=== PATIENT | male | born 1940 | race African-American/Black ===

== ENCOUNTER 2022-05-17 16:14 | Inpatient (IN) | payer OTHER ==
[~2022-05-17] VITALS: Ht 172.7 cm; Wt 85.0 kg
[2022-05-17] MEDS ORDERED: METO100T5 PO (16:39)
[2022-05-17] MEDS ORDERED: COSO1SOL3 OU (16:39)
[2022-05-17] MEDS ORDERED: BRIM2OPD OU (16:39)
[2022-05-17] MEDS ORDERED: LOSA100T45 PO (16:39)
[2022-05-17] MEDS ORDERED: XALA0.007 OU (16:39)
[2022-05-17] MEDS ORDERED: CLON0.2T PO (16:39)
[2022-05-17] MEDS ORDERED: METF500T13 PO (16:39)
[2022-05-17] MEDS ORDERED: hydrALAZINE 20MG/ML 1ML VIAL (J0360 PER 20MG) IV STA ×2 (18:04→19:26)
[2022-05-17 18:41] LABS: BASO # 0.1 10^3/uL (0.0-0.2); BASO % 0.7 % (0.0-1.0); EOS # 0.2 10^3/uL (0.0-0.5); EOS % 2.7 % (0.0-3.0); HEMATOCRIT 39.8 % (42.0-52.0); HEMOGLOBIN 12.7 g/dl (13.5-17.5); LYMPH # 1.9 10^3/uL (1.5-5.0); LYMPH % 24.2 % (24.0-44.0); MEAN CORPUSCULAR HEMOGLOBIN 31.7 pg (27.0-33.0); MEAN CORPUSCULAR HGB CONC 31.9 g/dl (32.0-36.5); MEAN CORPUSCULAR VOLUME 99.3 fl (80.0-96.0); MONO # 0.6 10^3/uL (0.0-0.8); MONO % 7.9 % (2.0-8.0); NEUTROPHILS # 4.9 10^3/uL (1.5-8.5); NEUTROPHILS % 64.2 % (36.0-66.0); PLATELET COUNT, AUTOMATED 151 10^3/uL (150-450); RED BLOOD COUNT 4.01 10^6/uL (4.30-6.10); WHITE BLOOD COUNT 7.7 10^3/uL (4.0-10.0)
[2022-05-17 18:57] LABS: ALBUMIN 3.8 GM/DL (3.2-5.2); BILIRUBIN,DIRECT 0.2 MG/DL (0.0-0.2); BILIRUBIN,TOTAL 1.4 MG/DL (0.2-1.0); CALCIUM LEVEL 9.1 MG/DL (8.8-10.2); CREATININE FOR GFR 1.61 MG/DL (0.70-1.30); FREE T4 0.77 NG/DL (0.76-1.46); GLOMERULAR FILTRATION RATE 44.2 (>35); POTASSIUM SERUM 4.8 MEQ/L (3.5-5.1); THYROID STIMULATING HORMONE 2.58 uIU/ML (0.358-3.740); TOTAL PROTEIN 7.7 GM/DL (6.4-8.2)
[2022-05-17 19:57] LABS: RSV AMPLIFICATION NEGATIVE (NEGATIVE)
[2022-05-17] MEDS ORDERED: RA M10TA PO (21:48)
[2022-05-17] MEDS ORDERED: VITMTA PO (21:48)
[2022-05-17] MEDS ORDERED: HOME MED LIST COMPLETE! XX SCH (21:50)
[2022-05-17] MEDS ORDERED: GLUCOSE 4GM CHEW TABLET PO PRN (22:35)
[2022-05-17] MEDS ORDERED: GLUCAGON INJ 1MG VIAL SC PRN (22:35)
[2022-05-17] MEDS ORDERED: DEXTROSE 50% 50 ML SYRINGE IV PRN (22:35)
[2022-05-17] MEDS ORDERED: MOM 30ML SUSPENSION UDC PO PRN (22:35)
[2022-05-17] MEDS: INSULIN LISPRO (NovoLOG) PER UNIT SC SCH (23:21)
[2022-05-18] VITALS (9 sets, daily range): BP systolic 141–220; BP diastolic 79–102
[2022-05-18] MEDS: hydrALAZINE 20MG/ML 1ML VIAL (J0360 PER 20MG) IV PRN ×2 (00:28→15:50)
[2022-05-18] MEDS: COSOPT OCUMETER PLUS 10ML (DORZOLAMIDE/TIMOLOL) OU SCH ×3 (01:05→20:37)
[2022-05-18] MEDS: BRIMONIDINE 0.15% OPHTH SOLN 5 ML OU SCH ×3 (01:05→20:37)
[2022-05-18] MEDS: LATANOPROST 0.005% OPHTH SOLN 2.5 ML OU SCH ×2 (01:28→20:37)
[2022-05-18] MEDS ORDERED: hydrALAZINE 20MG/ML 1ML VIAL (J0360 PER 20MG) IV STA (03:50)
[2022-05-18] MEDS: ACETAMINOPHEN TAB 650MG DOSE (2X325MG) PO PRN ×2 (03:57→08:26)
[2022-05-18] MEDS: HEPARIN SOD (PORCINE) 5000UNITS/ML 1ML VIAL/SYRINGE SC SCH ×3 (05:38→21:04)
[2022-05-18 06:16] LABS: HEMATOCRIT 39.9 % (42.0-52.0); HEMOGLOBIN 13.3 g/dl (13.5-17.5); MEAN CORPUSCULAR HEMOGLOBIN 32.4 pg (27.0-33.0); MEAN CORPUSCULAR HGB CONC 33.3 g/dl (32.0-36.5); MEAN CORPUSCULAR VOLUME 97.1 fl (80.0-96.0); PLATELET COUNT, AUTOMATED 159 10^3/uL (150-450); RED BLOOD COUNT 4.11 10^6/uL (4.30-6.10); WHITE BLOOD COUNT 9.5 10^3/uL (4.0-10.0)
[2022-05-18 06:46] LABS: ALBUMIN 3.9 GM/DL (3.2-5.2); ALT/SGPT 16 U/L (12-78); BILIRUBIN,TOTAL 1.6 MG/DL (0.2-1.0); BLOOD UREA NITROGEN 10 MG/DL (7-18); CALCIUM LEVEL 9.1 MG/DL (8.8-10.2); CARBON DIOXIDE LEVEL 24 MEQ/L (21-32); CHLORIDE LEVEL 103 MEQ/L (98-107); CREATININE FOR GFR 1.31 MG/DL (0.70-1.30); GLOMERULAR FILTRATION RATE > 60.0 (>35); GLUCOSE, FASTING 281 MG/DL (70-100); POTASSIUM SERUM 4.1 MEQ/L (3.5-5.1); SODIUM LEVEL 136 MEQ/L (136-145); TOTAL PROTEIN 7.7 GM/DL (6.4-8.2)
[2022-05-18] MEDS: INSULIN LISPRO (NovoLOG) PER UNIT SC SCH ×4 (07:30→21:04)
[2022-05-18] MEDS ORDERED: metFORMIN (GLUCOPHAGE) 500MG TAB PO SCH (08:00)
[2022-05-18] MEDS: DOCUSATE SODIUM 100MG CAPSULE PO SCH ×2 (08:26→20:32)
[2022-05-18] MEDS: METOPROLOL TARTRATE 100MG TAB PO SCH ×2 (08:27→20:33)
[2022-05-18] MEDS: LOSARTAN 50MG TABLET PO SCH (08:27)
[2022-05-18] MEDS: cloNIDine 0.2 MG TAB PO SCH ×2 (08:27→20:32)
[2022-05-18] MEDS: MULTIVITAMINS/MINERALS THERAP 1 TAB PO SCH (08:28)
[2022-05-18] MEDS ORDERED: amLODIPine 5 MG TAB PO SCH (09:00)
[2022-05-18] MEDS ORDERED: PREVNAR-20 VACCINE 0.5ML SYRINGE IM.IMMUN ONE (12:00)
[2022-05-18] MEDS ORDERED: amLODIPine 5 MG TAB PO ONE (16:55)
[2022-05-19] VITALS (8 sets, daily range): BP systolic 152–178; BP diastolic 68–98
[2022-05-19 05:08] LABS: HEMATOCRIT 39.5 % (42.0-52.0); HEMOGLOBIN 12.8 g/dl (13.5-17.5); MEAN CORPUSCULAR HEMOGLOBIN 31.7 pg (27.0-33.0); MEAN CORPUSCULAR HGB CONC 32.4 g/dl (32.0-36.5); MEAN CORPUSCULAR VOLUME 97.8 fl (80.0-96.0); PLATELET COUNT, AUTOMATED 166 10^3/uL (150-450); RED BLOOD COUNT 4.04 10^6/uL (4.30-6.10); WHITE BLOOD COUNT 8.6 10^3/uL (4.0-10.0)
[2022-05-19 05:48] LABS: ALBUMIN 3.7 GM/DL (3.2-5.2); BILIRUBIN,TOTAL 1.5 MG/DL (0.2-1.0); CALCIUM LEVEL 9.7 MG/DL (8.8-10.2); CREATININE FOR GFR 1.54 MG/DL (0.70-1.30); GLOMERULAR FILTRATION RATE 56.4 (>35); MAGNESIUM LEVEL 1.8 MG/DL (1.8-2.4); TOTAL PROTEIN 7.7 GM/DL (6.4-8.2)
[2022-05-19] MEDS: HEPARIN SOD (PORCINE) 5000UNITS/ML 1ML VIAL/SYRINGE SC SCH ×3 (05:58→22:00)
[2022-05-19] MEDS: INSULIN LISPRO (NovoLOG) PER UNIT SC SCH ×4 (07:30→21:00)
[2022-05-19 08:52] LABS: HEMOGLOBIN A1c 8.6 %
[2022-05-19] MEDS: cloNIDine 0.2 MG TAB PO SCH ×2 (09:33→22:01)
[2022-05-19] MEDS: LOSARTAN 50MG TABLET PO SCH (09:34)
[2022-05-19] MEDS: DOCUSATE SODIUM 100MG CAPSULE PO SCH ×2 (09:34→22:00)
[2022-05-19] MEDS: BRIMONIDINE 0.15% OPHTH SOLN 5 ML OU SCH ×2 (09:35→21:59)
[2022-05-19] MEDS: COSOPT OCUMETER PLUS 10ML (DORZOLAMIDE/TIMOLOL) OU SCH ×2 (09:35→22:00)
[2022-05-19] MEDS: MULTIVITAMINS/MINERALS THERAP 1 TAB PO SCH (09:35)
[2022-05-19] MEDS: METOPROLOL TARTRATE 100MG TAB PO SCH ×2 (09:36→22:02)
[2022-05-19 19:08] LABS: CREATININE FOR GFR 1.76 MG/DL (0.70-1.30); GLOMERULAR FILTRATION RATE 48.3 (>35); POTASSIUM SERUM 4.4 MEQ/L (3.5-5.1)
[2022-05-19 19:09] LABS: CALCIUM LEVEL 9.1 MG/DL (8.8-10.2)
[2022-05-19] MEDS: LATANOPROST 0.005% OPHTH SOLN 2.5 ML OU SCH (21:59)
[2022-05-20] VITALS (8 sets, daily range): BP systolic 118–174; BP diastolic 70–98
[2022-05-20] MEDS: hydrALAZINE 20MG/ML 1ML VIAL (J0360 PER 20MG) IV PRN (04:23)
[2022-05-20] MEDS: HEPARIN SOD (PORCINE) 5000UNITS/ML 1ML VIAL/SYRINGE SC SCH ×2 (05:19→13:21)
[2022-05-20 05:34] LABS: HEMATOCRIT 36.7 % (42.0-52.0); HEMOGLOBIN 12.2 g/dl (13.5-17.5); MEAN CORPUSCULAR HEMOGLOBIN 32.3 pg (27.0-33.0); MEAN CORPUSCULAR HGB CONC 33.2 g/dl (32.0-36.5); MEAN CORPUSCULAR VOLUME 97.1 fl (80.0-96.0); PLATELET COUNT, AUTOMATED 161 10^3/uL (150-450); RED BLOOD COUNT 3.78 10^6/uL (4.30-6.10); WHITE BLOOD COUNT 7.2 10^3/uL (4.0-10.0)
[2022-05-20 06:06] LABS: ALBUMIN 3.3 GM/DL (3.2-5.2); BILIRUBIN,TOTAL 1.4 MG/DL (0.2-1.0); CALCIUM LEVEL 9.2 MG/DL (8.8-10.2); CREATININE FOR GFR 1.73 MG/DL (0.70-1.30); GLOMERULAR FILTRATION RATE 49.3 (>35); MAGNESIUM LEVEL 1.9 MG/DL (1.8-2.4); POTASSIUM SERUM 3.9 MEQ/L (3.5-5.1)
[2022-05-20] MEDS ORDERED: **hydrALAZINE** 10 MG TAB PO SCH ×2 (09:00→16:00)
[2022-05-20] MEDS: INSULIN LISPRO (NovoLOG) PER UNIT SC SCH ×2 (09:06→12:35)
[2022-05-20] MEDS: MULTIVITAMINS/MINERALS THERAP 1 TAB PO SCH (09:07)
[2022-05-20] MEDS: cloNIDine 0.2 MG TAB PO SCH (09:07)
[2022-05-20] MEDS: DOCUSATE SODIUM 100MG CAPSULE PO SCH (09:07)
[2022-05-20] MEDS: METOPROLOL TARTRATE 100MG TAB PO SCH (09:08)
[2022-05-20] MEDS: BRIMONIDINE 0.15% OPHTH SOLN 5 ML OU SCH (09:09)
[2022-05-20] MEDS: COSOPT OCUMETER PLUS 10ML (DORZOLAMIDE/TIMOLOL) OU SCH (09:09)
[2022-05-20] MEDS ORDERED: HYDR10TAB PO (13:57)
[2022-05-20] MEDS ORDERED: AMLO1TAB25 PO (13:57)
== END 2022-05-20 19:03 | disposition home or self-care (01) | DRG 305 ==
LOC: M ED 16:14 → M ED INP 22:34 → ENRESERV 23:23 → M PCU 05-18 00:11
PROVIDERS: ADMIT Family Medicine; ATTEND Family Medicine
DX: I16.9 Hypertensive crisis, unspecified (principal); N17.9 Acute kidney failure, unspecified; I70.1 Atherosclerosis of renal artery; Z79.899 Other long term (current) drug therapy; E11.9 Type 2 diabetes mellitus without complications; I10 Essential (primary) hypertension

== ENCOUNTER → 2022-06-28 | Outpatient (REF) | payer OTHER ==
[~2022-06-28] MED LIST: AMLO1TAB25 PO; BRIM2OPD OU; CLON0.2T PO; COSO1SOL3 OU; HYDR10TAB PO; LOSA100T45 PO; METF500T13 PO; METO100T5 PO; RA M10TA PO; VITMTA PO; XALA0.007 OU
[2022-06-28 14:18] LABS: BASO % 0.5 % (0.0-1.0); EOS # 0.3 10^3/uL (0.0-0.5); EOS % 3.8 % (0.0-3.0); HEMATOCRIT 37.5 % (42.0-52.0); HEMOGLOBIN 11.8 g/dl (13.5-17.5); LYMPH # 2.1 10^3/uL (1.5-5.0); LYMPH % 28.7 % (24.0-44.0); MEAN CORPUSCULAR HEMOGLOBIN 31.7 pg (27.0-33.0); MEAN CORPUSCULAR HGB CONC 31.5 g/dl (32.0-36.5); MEAN CORPUSCULAR VOLUME 100.8 fl (80.0-96.0); MONO # 0.6 10^3/uL (0.0-0.8); NEUTROPHILS # 4.3 10^3/uL (1.5-8.5); NEUTROPHILS % 58.7 % (36.0-66.0); PLATELET COUNT, AUTOMATED 152 10^3/uL (150-450); RED BLOOD COUNT 3.72 10^6/uL (4.30-6.10); WHITE BLOOD COUNT 7.3 10^3/uL (4.0-10.0)
[2022-06-28 14:51] LABS: HEMOGLOBIN A1c 10.3 %
[2022-06-28 15:47] LABS: ALBUMIN 3.4 GM/DL (3.2-5.2); BILIRUBIN,TOTAL 0.9 MG/DL (0.2-1.0); CALCIUM LEVEL 8.6 MG/DL (8.8-10.2); CHOLESTEROL RISK RATIO 3.853 (<5); CREATININE FOR GFR 1.53 MG/DL (0.70-1.30); GLOMERULAR FILTRATION RATE 56.8 (>35); POTASSIUM SERUM 4.9 MEQ/L (3.5-5.1); TOTAL PROTEIN 7.7 GM/DL (6.4-8.2)
== END ==
LOC: M LAB REF 12:33
PROVIDERS: ATTEND Nurse Practitioner Family
DX: I10 Essential (primary) hypertension (principal); R60.0 Localized edema; E11.9 Type 2 diabetes mellitus without complications

== ENCOUNTER → 2022-08-01 | Outpatient (REF) | payer OTHER ==
[2022-08-01 18:17] LABS: BASO # 0.1 10^3/uL (0.0-0.2); BASO % 0.7 % (0.0-1.0); EOS # 0.2 10^3/uL (0.0-0.5); EOS % 2.6 % (0.0-3.0); HEMATOCRIT 38.4 % (42.0-52.0); HEMOGLOBIN 12.3 g/dl (13.5-17.5); LYMPH # 1.9 10^3/uL (1.5-5.0); MEAN CORPUSCULAR HEMOGLOBIN 31.7 pg (27.0-33.0); MONO # 0.5 10^3/uL (0.0-0.8); MONO % 7.3 % (2.0-8.0); NEUTROPHILS # 4.8 10^3/uL (1.5-8.5); NEUTROPHILS % 64.3 % (36.0-66.0); PLATELET COUNT, AUTOMATED 180 10^3/uL (150-450); RED BLOOD COUNT 3.88 10^6/uL (4.30-6.10); WHITE BLOOD COUNT 7.4 10^3/uL (4.0-10.0)
[2022-08-01 22:29] LABS: BLOOD UREA NITROGEN 14 MG/DL (9-23); CARBON DIOXIDE LEVEL 24 MMOL/L (20-31); CHLORIDE LEVEL 101 MMOL/L (98-107); CREATININE FOR GFR 1.33 MG/DL (0.70-1.30); FERRITIN 25.7 NG/ML (10.5-307.3); FOLATE > 24.0 NG/ML (>5.4); GLOMERULAR FILTRATION RATE > 60.0 (>35); GLUCOSE, FASTING 316 MG/DL (74-106); IRON (FE) 91 UG/DL (65-175); PERCENT SATURATION 26.8 % (19.7-50.0); PHOSPHORUS LEVEL 3.1 MG/DL (2.4-5.1); POTASSIUM SERUM 4.6 MMOL/L (3.5-5.1); SODIUM LEVEL 135 MMOL/L (136-145); TOTAL IRON BINDING CAPACITY 339 UG/DL (250-425)
[2022-08-01 22:36] LABS: PTH INTACT 58.8 PG/ML (18.5-88.0); VITAMIN B12 LEVEL 369 PG/ML (211-911)
== END ==
LOC: M LAB REF 17:35
PROVIDERS: ATTEND Nurse Practitioner Family
DX: R60.0 Localized edema (principal); R79.89 Other specified abnormal findings of blood chemistry; D64.9 Anemia, unspecified; E83.51 Hypocalcemia

== ENCOUNTER 2022-12-22 13:18 | Inpatient (IN) | payer OTHER ==
[2022-12-22] VITALS (18 sets, daily range): BP systolic 135–206; BP diastolic 74–119
[~2022-12-22] VITALS: Ht 172.7 cm; Wt 84.5 kg
[~2022-12-22 13:18] MED LIST changes: -COSO1SOL3 OU; +DORZ10DR10 OU; -LOSA100T45 PO; +LOSA100T46 PO
[2022-12-22] MEDS ORDERED: VALSARTAN 80 MG TAB (DIOVAN) PO ONE (14:50)
[2022-12-22] MEDS ORDERED: CHLORTHALIDONE 12.5MG PER 1/2 TABLET PO ONE (14:50)
[2022-12-22 14:53] LABS: INR 1.06; PARTIAL THROMBOPLASTIN TIME 21.5 SECONDS (24.8-34.2)
[2022-12-22 15:06] LABS: BASO % 0.6 % (0.0-1.0); EOS # 0.2 10^3/uL (0.0-0.5); EOS % 2.7 % (0.0-3.0); HEMOGLOBIN 13.1 g/dl (13.5-17.5); LYMPH # 1.9 10^3/uL (1.5-5.0); LYMPH % 30.3 % (24.0-44.0); MEAN CORPUSCULAR HGB CONC 32.8 g/dl (32.0-36.5); MEAN CORPUSCULAR VOLUME 97.6 fl (80.0-96.0); MONO # 0.5 10^3/uL (0.0-0.8); NEUTROPHILS # 3.7 10^3/uL (1.5-8.5); NEUTROPHILS % 58.1 % (36.0-66.0); PLATELET COUNT, AUTOMATED 154 10^3/uL (150-450); WHITE BLOOD COUNT 6.4 10^3/uL (4.0-10.0)
[2022-12-22 15:06] LABS: LIPASE 30 U/L (12-53)
[2022-12-22 15:09] LABS: ALBUMIN 3.6 G/DL (3.2-5.2); ALKALINE PHOSPHATASE 55 U/L (46-116); ALT/SGPT 14 U/L (7.0-40); AST/SGOT 20 U/L (<34); BILIRUBIN,DIRECT 0.4 MG/DL (<0.4); BILIRUBIN,TOTAL 1.5 MG/DL (0.3-1.2); BLOOD UREA NITROGEN 10 MG/DL (9-23); CALCIUM LEVEL 8.5 MG/DL (8.3-10.6); CARBON DIOXIDE LEVEL 28 MMOL/L (20-31); CHLORIDE LEVEL 100 MMOL/L (98-107); CK-MB VALUE MASS < 1.0 NG/ML (<3.6); CREATININE FOR GFR 1.37 MG/DL (0.70-1.30); GLOMERULAR FILTRATION RATE > 60.0 (>35); GLUCOSE, FASTING 336 MG/DL (74-106); POTASSIUM SERUM 4.5 MMOL/L (3.5-5.1); SODIUM LEVEL 134 MMOL/L (136-145); TOTAL PROTEIN 7.4 G/DL (5.7-8.2)
[2022-12-22 15:10] LABS: FREE T4 0.88 NG/DL (0.89-1.76)
[2022-12-22 15:11] LABS: THYROID STIMULATING HORMONE 2.218 uIU/ML (0.55-4.78)
[2022-12-22 15:13] LABS: CPK CREATINE PHOSPHOKINASE 156 U/L (46-171); MB/CK RELATIVE INDEX 0.64 (< OR =4)
[2022-12-22 15:15] LABS: RSV AMPLIFICATION NEGATIVE (NEGATIVE)
[2022-12-22] MEDS ORDERED: hydrALAZINE 20MG/ML 1ML VIAL IV ONE (15:40)
[2022-12-22 16:46] LABS: CK-MB VALUE MASS < 1.0 NG/ML (<3.6); CPK CREATINE PHOSPHOKINASE 146 U/L (46-171); MB/CK RELATIVE INDEX 0.68 (< OR =4)
[2022-12-22] MEDS ORDERED: niCARdipine 40MG IN 200ML NACL IV BAG As Ordered ONE (17:25)
[2022-12-22] MEDS ORDERED: niCARdipine IV 40 MG in IV 1 EA IV SCH (17:30)
[2022-12-22] MEDS ORDERED: NITROGLYCERIN/D5W 100MCG/ML 25 MG in IV 1 EA IV SCH ×2 (17:40→17:45)
[2022-12-22] MEDS ORDERED: DEXTROSE 50% 50ML SYRINGE IV PRN (18:10)
[2022-12-22] MEDS ORDERED: GLUCOSE 4GM CHEW TABLET PO PRN (18:10)
[2022-12-22] MEDS ORDERED: GLUCAGON INJ 1MG VIAL SC PRN (18:10)
[2022-12-22] MEDS ORDERED: HYDR10TAB PO (18:46)
[2022-12-22] MEDS ORDERED: NETA2.5D2 OU (18:46)
[2022-12-22] MEDS ORDERED: HOME MED LIST COMPLETE! XX SCH (18:50)
[2022-12-22 20:26] LABS: APPEARANCE, URINE CLEAR (CLEAR); BACTERIA, URINE AUTO NEGATIVE (NEGATIVE); BILIRUBIN, URINE AUTO NEGATIVE (NEGATIVE); BLOOD, URINE BLOOD NEGATIVE (NEGATIVE); COLOR, URINE YELLOW (YELLOW); GLUCOSE, URINE (UA) AUTO 3+ mg/dL (NEGATIVE); KETONE, URINE AUTO NEGATIVE (NEGATIVE); LEUKOCYTE ESTERASE, URINE AUTO NEGATIVE (NEGATIVE); NITRITE, URINE AUTO NEGATIVE (NEGATIVE); PROTEIN, URINE AUTO 2+ mg/dL (NEGATIVE); RBC, URINE AUTO 0 /HPF (0-3); SPECIFIC GRAVITY URINE AUTO 1.009 (1.002-1.035); SQUAMOUS EPITHELIAL CELL UR AU 0 /HPF (0-6); UROBILINOGEN, URINE AUTO 0.2 mg/dL (0.0-2.0); WBC, URINE AUTO 0 /HPF (0-3)
[2022-12-22] MEDS: INSULIN LISPRO (NovoLOG) PER UNIT SC SCH (20:38)
[2022-12-22] MEDS: COSOPT OCUMETER PLUS 10ML (DORZOLAMIDE/TIMOLOL) OU SCH (21:00)
[2022-12-22 22:31] LABS: MAGNESIUM LEVEL 1.4 MG/DL (1.8-2.4)
[2022-12-22] MEDS: MAG SULF 1GM/100ML (MAG RUN) 1 GM in IV 1 EA IV SCH (23:28)
[2022-12-22] MEDS: BRIMONIDINE 0.15% OPHTH SOLN 5 ML OU SCH (23:28)
[2022-12-22] MEDS: LATANOPROST 0.005% OPHTH SOLN 2.5 ML OU SCH (23:28)
[2022-12-22] MEDS: ACETAMINOPHEN TAB 650MG DOSE (2X325MG) PO PRN (23:42)
[2022-12-22] MEDS: NITROGLYCERIN/D5W 100MCG/ML 25 MG in IV 1 EA IV SCH (23:48)
[2022-12-23] VITALS (90 sets, daily range): BP systolic 139–220; BP diastolic 65–140
[2022-12-23] MEDS: MAG SULF 1GM/100ML (MAG RUN) 1 GM in IV 1 EA IV SCH (00:16)
[2022-12-23 04:06] LABS: HEMATOCRIT 35.8 % (42.0-52.0); HEMOGLOBIN 12.1 g/dl (13.5-17.5); MEAN CORPUSCULAR HEMOGLOBIN 32.4 pg (27.0-33.0); MEAN CORPUSCULAR HGB CONC 33.8 g/dl (32.0-36.5); MEAN CORPUSCULAR VOLUME 95.7 fl (80.0-96.0); PLATELET COUNT, AUTOMATED 161 10^3/uL (150-450); RED BLOOD COUNT 3.74 10^6/uL (4.30-6.10); WHITE BLOOD COUNT 8.1 10^3/uL (4.0-10.0)
[2022-12-23 04:32] LABS: ALBUMIN 3.2 G/DL (3.2-5.2); ALKALINE PHOSPHATASE 49 U/L (46-116); ALT/SGPT 11 U/L (7.0-40); AST/SGOT < 8 U/L (<34); BILIRUBIN,TOTAL 1.4 MG/DL (0.3-1.2); BLOOD UREA NITROGEN 8 MG/DL (9-23); CALCIUM LEVEL 8.4 MG/DL (8.3-10.6); CARBON DIOXIDE LEVEL 26 MMOL/L (20-31); CHLORIDE LEVEL 101 MMOL/L (98-107); GLOMERULAR FILTRATION RATE > 60.0 (>35); GLUCOSE, FASTING 334 MG/DL (74-106); MAGNESIUM LEVEL 1.8 MG/DL (1.8-2.4); POTASSIUM SERUM 4.1 MMOL/L (3.5-5.1); SODIUM LEVEL 135 MMOL/L (136-145); TOTAL PROTEIN 6.2 G/DL (5.7-8.2)
[2022-12-23] MEDS: NITROGLYCERIN/D5W 100MCG/ML 25 MG in IV 1 EA IV SCH ×4 (05:52→18:30)
[2022-12-23] MEDS: ACETAMINOPHEN TAB 650MG DOSE (2X325MG) PO PRN (07:26)
[2022-12-23] MEDS ORDERED: ONDANSETRON 4MG 2ML VIAL IV PRN (07:45)
[2022-12-23] MEDS ORDERED: ONDANSETRON 4MG 2ML VIAL IV ONE (07:45)
[2022-12-23] MEDS ORDERED: ONDANSETRON 4MG 2ML VIAL As Ordered ONE (07:47)
[2022-12-23] MEDS ORDERED: MORPHINE 2 MG/ML 1ML VIAL IV PRN (08:10)
[2022-12-23] MEDS: BRIMONIDINE 0.15% OPHTH SOLN 5 ML OU SCH ×2 (08:31→20:05)
[2022-12-23] MEDS: INSULIN LISPRO (NovoLOG) PER UNIT SC SCH ×4 (08:31→20:06)
[2022-12-23] MEDS: COSOPT OCUMETER PLUS 10ML (DORZOLAMIDE/TIMOLOL) OU SCH ×2 (09:00→20:03)
[2022-12-23] MEDS ORDERED: cloNIDine HCL 0.2 MG/24 HR PATCH TOP SCH (09:00)
[2022-12-23] MEDS ORDERED: CHLORTHALIDONE 25 MG TAB PO ONE (10:10)
[2022-12-23] MEDS ORDERED: METOPROLOL SUCC *XL* 25MG TAB (TopROL *XL*) PO ONE ×2 (10:10→20:00)
[2022-12-23] MEDS: **hydrALAZINE HCL** 25 MG TAB PO SCH ×2 (12:08→17:11)
[2022-12-23] MEDS ORDERED: PANTOPRAZOLE 40MG VIAL IV SCH (18:00)
[2022-12-23] MEDS ORDERED: **hydrALAZINE HCL** 25 MG TAB PO ONE (20:00)
[2022-12-23] MEDS: LATANOPROST 0.005% OPHTH SOLN 2.5 ML OU SCH (20:05)
[2022-12-24] VITALS (79 sets, daily range): BP systolic 155–231; BP diastolic 72–137
[2022-12-24] MEDS: **hydrALAZINE HCL** 25 MG TAB PO SCH ×2 (00:10→05:44)
[2022-12-24] MEDS: NITROGLYCERIN/D5W 100MCG/ML 25 MG in IV 1 EA IV SCH ×9 (02:03→23:32)
[2022-12-24 05:00] LABS: HEMATOCRIT 34.2 % (42.0-52.0); HEMOGLOBIN 11.5 g/dl (13.5-17.5); MEAN CORPUSCULAR HEMOGLOBIN 32.3 pg (27.0-33.0); MEAN CORPUSCULAR HGB CONC 33.6 g/dl (32.0-36.5); MEAN CORPUSCULAR VOLUME 96.1 fl (80.0-96.0); PLATELET COUNT, AUTOMATED 152 10^3/uL (150-450); RED BLOOD COUNT 3.56 10^6/uL (4.30-6.10); WHITE BLOOD COUNT 10.7 10^3/uL (4.0-10.0)
[2022-12-24 05:23] LABS: BLOOD UREA NITROGEN 8 MG/DL (9-23); CALCIUM LEVEL 8.3 MG/DL (8.3-10.6); CARBON DIOXIDE LEVEL 26 MMOL/L (20-31); CHLORIDE LEVEL 102 MMOL/L (98-107); CREATININE FOR GFR 1.21 MG/DL (0.70-1.30); GLOMERULAR FILTRATION RATE > 60.0 (>35); GLUCOSE, FASTING 321 MG/DL (74-106); POTASSIUM SERUM 3.9 MMOL/L (3.5-5.1); SODIUM LEVEL 136 MMOL/L (136-145)
[2022-12-24] MEDS ORDERED: hydrALAZINE 20MG/ML 1ML VIAL IV PRN (07:40)
[2022-12-24] MEDS: BRIMONIDINE 0.15% OPHTH SOLN 5 ML OU SCH ×2 (08:24→20:11)
[2022-12-24] MEDS: CHLORTHALIDONE 25 MG TAB PO SCH (08:25)
[2022-12-24] MEDS: INSULIN LISPRO (NovoLOG) PER UNIT SC SCH ×4 (08:25→20:09)
[2022-12-24] MEDS: ACETAMINOPHEN TAB 650MG DOSE (2X325MG) PO PRN (08:26)
[2022-12-24] MEDS ORDERED: METOPROLOL SUCC (TopROL XL) 50MG **XL** TAB PO SCH (09:00)
[2022-12-24] MEDS ORDERED: METOPROLOL SUCC (TopROL XL) 100MG *XL* TAB PO SCH (09:00)
[2022-12-24] MEDS ORDERED: METOPROLOL SUCC *XL* 25MG TAB (TopROL *XL*) PO SCH (09:00)
[2022-12-24] MEDS: hydrALAZINE 20MG/ML 1ML VIAL IV PRN ×2 (09:39→16:06)
[2022-12-24] MEDS ORDERED: **hydrALAZINE** 50 MG TAB PO SCH (12:00)
[2022-12-24] MEDS: COSOPT OCUMETER PLUS 10ML (DORZOLAMIDE/TIMOLOL) OU SCH ×2 (13:23→20:11)
[2022-12-24] MEDS ORDERED: ENALAPRILAT INJ 2.5MG/2ML VIAL IV ONE (18:15)
[2022-12-24] MEDS: PANTOPRAZOLE 40MG TAB (PROTONIX) PO SCH (18:53)
[2022-12-24] MEDS: METOPROLOL SUCC (TopROL XL) 100MG *XL* TAB PO SCH (20:10)
[2022-12-24] MEDS: LATANOPROST 0.005% OPHTH SOLN 2.5 ML OU SCH (20:10)
[2022-12-24] MEDS ORDERED: LEVEMIR (INSULIN DETEMIR) 1 UNITS/0.01ML SC SCH (21:00)
[2022-12-24] MEDS: **hydrALAZINE** 50 MG TAB PO SCH (23:32)
[2022-12-25] VITALS (45 sets, daily range): BP systolic 151–225; BP diastolic 82–125
[2022-12-25] MEDS: NITROGLYCERIN/D5W 100MCG/ML 25 MG in IV 1 EA IV SCH ×7 (01:39→17:01)
[2022-12-25] MEDS: hydrALAZINE 20MG/ML 1ML VIAL IV PRN (04:13)
[2022-12-25] MEDS: **hydrALAZINE** 50 MG TAB PO SCH ×3 (06:04→17:27)
[2022-12-25 08:18] LABS: HEMATOCRIT 35.4 % (42.0-52.0); HEMOGLOBIN 12.3 g/dl (13.5-17.5); MEAN CORPUSCULAR HEMOGLOBIN 32.7 pg (27.0-33.0); MEAN CORPUSCULAR HGB CONC 34.7 g/dl (32.0-36.5); MEAN CORPUSCULAR VOLUME 94.1 fl (80.0-96.0); PLATELET COUNT, AUTOMATED 180 10^3/uL (150-450); RED BLOOD COUNT 3.76 10^6/uL (4.30-6.10); WHITE BLOOD COUNT 12.7 10^3/uL (4.0-10.0)
[2022-12-25] MEDS: CHLORTHALIDONE 25 MG TAB PO SCH (08:26)
[2022-12-25] MEDS: BRIMONIDINE 0.15% OPHTH SOLN 5 ML OU SCH ×2 (08:31→21:18)
[2022-12-25] MEDS: METOPROLOL SUCC (TopROL XL) 100MG *XL* TAB PO SCH ×2 (08:31→20:23)
[2022-12-25] MEDS: COSOPT OCUMETER PLUS 10ML (DORZOLAMIDE/TIMOLOL) OU SCH ×2 (08:32→21:18)
[2022-12-25] MEDS: VALSARTAN 80 MG TAB (DIOVAN) PO SCH (08:40)
[2022-12-25 08:43] LABS: ALBUMIN 3.1 G/DL (3.2-5.2); BLOOD UREA NITROGEN 8 MG/DL (9-23); CALCIUM LEVEL 8.4 MG/DL (8.3-10.6); CARBON DIOXIDE LEVEL 26 MMOL/L (20-31); CHLORIDE LEVEL 93 MMOL/L (98-107); CREATININE FOR GFR 1.05 MG/DL (0.70-1.30); GLOMERULAR FILTRATION RATE > 60.0 (>35); GLUCOSE, FASTING 363 MG/DL (74-106); PHOSPHORUS LEVEL 2.5 MG/DL (2.4-5.1); POTASSIUM SERUM 3.6 MMOL/L (3.5-5.1); SODIUM LEVEL 127 MMOL/L (136-145)
[2022-12-25] MEDS ORDERED: ALPRAZolam 0.25 MG TAB PO SCH (09:00)
[2022-12-25] MEDS: INSULIN LISPRO (NovoLOG) PER UNIT SC SCH ×3 (09:30→18:27)
[2022-12-25 09:33] LABS: ALKALINE PHOSPHATASE 52 U/L (46-116); ALT/SGPT 10 U/L (7.0-40); AST/SGOT 26 U/L (<34); BILIRUBIN,TOTAL 5.7 MG/DL (0.3-1.2); TOTAL PROTEIN 6.8 G/DL (5.7-8.2)
[2022-12-25 09:47] LABS: BASO % 0.2 % (0.0-1.0); EOS % 0.2 % (0.0-3.0); LYMPH % 8.3 % (24.0-44.0); MONO % 10.1 % (2.0-8.0); NEUTROPHILS % 80.6 % (36.0-66.0)
[2022-12-25 09:48] LABS: MONO # 1.2 10^3/uL (0.0-0.8); NEUTROPHILS # 9.8 10^3/uL (1.5-8.5)
[2022-12-25] MEDS ORDERED: ENALAPRILAT INJ 2.5MG/2ML VIAL IV ONE ×2 (10:00→15:45)
[2022-12-25] MEDS ORDERED: SPIRONOLACTONE 25 MG TAB PO ONE (12:00)
[2022-12-25] MEDS: PANTOPRAZOLE 40MG TAB (PROTONIX) PO SCH (17:27)
[2022-12-25] MEDS: FINASTERIDE 5MG TAB PO SCH (20:22)
[2022-12-25] MEDS: TAMSULOSIN 0.4 MG CAP PO SCH (20:22)
[2022-12-25] MEDS ORDERED: LEVEMIR (INSULIN DETEMIR) 1 UNITS/0.01ML SC SCH (21:00)
[2022-12-25] MEDS: LATANOPROST 0.005% OPHTH SOLN 2.5 ML OU SCH (21:18)
[2022-12-26] VITALS (35 sets, daily range): BP systolic 97–213; BP diastolic 57–111
[2022-12-26] MEDS: **hydrALAZINE** 50 MG TAB PO SCH ×3 (00:02→06:55)
[2022-12-26] MEDS: INSULIN LISPRO (NovoLOG) PER UNIT SC SCH ×6 (00:03→20:38)
[2022-12-26] MEDS ORDERED: hydrALAZINE 20MG/ML 1ML VIAL IV ONE (00:15)
[2022-12-26 04:47] LABS: HEMOGLOBIN 12.8 g/dl (13.5-17.5); MEAN CORPUSCULAR HEMOGLOBIN 32.2 pg (27.0-33.0); MEAN CORPUSCULAR HGB CONC 34.6 g/dl (32.0-36.5); MEAN CORPUSCULAR VOLUME 93.2 fl (80.0-96.0); PLATELET COUNT, AUTOMATED 190 10^3/uL (150-450); RED BLOOD COUNT 3.97 10^6/uL (4.30-6.10); WHITE BLOOD COUNT 12.8 10^3/uL (4.0-10.0)
[2022-12-26 05:03] LABS: EOSINOPHILS 1 % (0-3); LYMPHOCYTES 18 % (16-44); MONOCYTES 16 % (0-5); NEUTROPHILS 65 % (28-66); PLATELET CLUMPS SMALL AMT; PLATELET ESTIMATE NORMAL (NORMAL)
[2022-12-26 05:05] LABS: HYPOCHROMASIA 1+
[2022-12-26 05:13] LABS: ALBUMIN 2.8 G/DL (3.2-5.2); ALKALINE PHOSPHATASE 54 U/L (46-116); ALT/SGPT 14 U/L (7.0-40); AST/SGOT 19 U/L (<34); BILIRUBIN,TOTAL 5.9 MG/DL (0.3-1.2); BLOOD UREA NITROGEN 13 MG/DL (9-23); CALCIUM LEVEL 8.2 MG/DL (8.3-10.6); CARBON DIOXIDE LEVEL 26 MMOL/L (20-31); CHLORIDE LEVEL 92 MMOL/L (98-107); CREATININE FOR GFR 1.28 MG/DL (0.70-1.30); GLOMERULAR FILTRATION RATE > 60.0 (>35); GLUCOSE, FASTING 238 MG/DL (74-106); POTASSIUM SERUM 3.3 MMOL/L (3.5-5.1); SODIUM LEVEL 128 MMOL/L (136-145); TOTAL PROTEIN 6.4 G/DL (5.7-8.2)
[2022-12-26] MEDS ORDERED: POTASSIUM CHLORIDE 10MEQ SR TABLET PO ONE (06:05)
[2022-12-26] MEDS: SPIRONOLACTONE 25 MG TAB PO SCH (08:04)
[2022-12-26] MEDS: VALSARTAN 80 MG TAB (DIOVAN) PO SCH (08:05)
[2022-12-26] MEDS: METOPROLOL SUCC (TopROL XL) 100MG *XL* TAB PO SCH ×2 (08:05→20:24)
[2022-12-26] MEDS: CHLORTHALIDONE 25 MG TAB PO SCH (08:05)
[2022-12-26] MEDS: LATANOPROST 0.005% OPHTH SOLN 2.5 ML OU SCH ×2 (08:06→20:24)
[2022-12-26] MEDS: COSOPT OCUMETER PLUS 10ML (DORZOLAMIDE/TIMOLOL) OU SCH ×3 (08:06→20:24)
[2022-12-26] MEDS: BRIMONIDINE 0.15% OPHTH SOLN 5 ML OU SCH ×2 (08:13→20:24)
[2022-12-26] MEDS ORDERED: ALPRAZolam 0.25 MG TAB PO PRN (09:10)
[2022-12-26] MEDS ORDERED: NS 500 ML IV ONE (11:25)
[2022-12-26] MEDS: LEVEMIR (INSULIN DETEMIR) 1 UNITS/0.01ML SC SCH ×2 (11:26→20:39)
[2022-12-26] MEDS ORDERED: KCL 10MEQ/100ML SWI (KRUN) 10 MEQ in IV 1 EA IV ONE (11:45)
[2022-12-26 13:04] LABS: HEPATITIS B SURFACE ANTIGEN NEGATIVE (NEGATIVE)
[2022-12-26] MEDS: HEPARIN SOD (PORCINE) 5000UNITS/ML 1ML VIAL/SYRINGE SQ SCH ×2 (13:16→20:24)
[2022-12-26 13:26] LABS: HEPATITIS B CORE ANTIBODY IGM NEGATIVE (NEGATIVE)
[2022-12-26 13:33] LABS: ABG HCO3 24.9 MEQ/L (22.0-26.0); ABG O2 SATURATION 96.7 % (95.0-99.0); ABG PARTIAL PRESSURE CO2 37.4 mmHg (35.0-45.0); ABG PARTIAL PRESSURE O2 83.8 mmHg (75.0-100.0); ABG STANDARD HCO3 25.4 MEQ/L (22.0-26.0); ABG TOTAL CO2 26.1 MEQ/L (23.0-31.0); ABG pH (ARTERIAL) 7.442 UNITS (7.350-7.450)
[2022-12-26] MEDS ORDERED: LACTULOSE 20GM/30ML SYRUP UDC PR ONE (13:45)
[2022-12-26] MEDS ORDERED: LACTULOSE 20GM/30ML SYRUP UDC PO ONE (15:25)
[2022-12-26] MEDS: PANTOPRAZOLE 40MG TAB (PROTONIX) PO SCH (18:09)
[2022-12-26] MEDS ORDERED: cloNIDine HCL 0.2 MG/24 HR PATCH TOP SCH (20:00)
[2022-12-26] MEDS: FINASTERIDE 5MG TAB PO SCH (20:25)
[2022-12-26] MEDS: TAMSULOSIN 0.4 MG CAP PO SCH (20:25)
[2022-12-26] MEDS: LACTULOSE 20GM/30ML SYRUP UDC PO SCH (20:38)
[2022-12-26] MEDS ORDERED: LEVEMIR (INSULIN DETEMIR) 1 UNITS/0.01ML SC SCH (21:00)
[2022-12-27] VITALS (12 sets, daily range): BP systolic 113–167; BP diastolic 58–92
[2022-12-27 05:55] LABS: BASO # 0.1 10^3/uL (0.0-0.2); BASO % 0.4 % (0.0-1.0); EOS # 0.1 10^3/uL (0.0-0.5); EOS % 1.2 % (0.0-3.0); HEMATOCRIT 38.9 % (42.0-52.0); HEMOGLOBIN 13.2 g/dl (13.5-17.5); LYMPH # 1.9 10^3/uL (1.5-5.0); LYMPH % 16.7 % (24.0-44.0); MEAN CORPUSCULAR HEMOGLOBIN 32.6 pg (27.0-33.0); MEAN CORPUSCULAR HGB CONC 33.9 g/dl (32.0-36.5); MONO % 15.5 % (2.0-8.0); NEUTROPHILS # 7.4 10^3/uL (1.5-8.5); NEUTROPHILS % 65.3 % (36.0-66.0); PLATELET COUNT, AUTOMATED 193 10^3/uL (150-450); RED BLOOD COUNT 4.05 10^6/uL (4.30-6.10); WHITE BLOOD COUNT 11.3 10^3/uL (4.0-10.0)
[2022-12-27 06:23] LABS: ALBUMIN 2.7 G/DL (3.2-5.2); ALKALINE PHOSPHATASE 54 U/L (46-116); ALT/SGPT 15 U/L (7.0-40); AST/SGOT < 8 U/L (<34); BILIRUBIN,TOTAL 5.1 MG/DL (0.3-1.2); BLOOD UREA NITROGEN 20 MG/DL (9-23); CALCIUM LEVEL 8.6 MG/DL (8.3-10.6); CARBON DIOXIDE LEVEL 26 MMOL/L (20-31); CHLORIDE LEVEL 99 MMOL/L (98-107); CREATININE FOR GFR 1.42 MG/DL (0.70-1.30); GLOMERULAR FILTRATION RATE > 60.0 (>35); GLUCOSE, FASTING 206 MG/DL (74-106); POTASSIUM SERUM 3.8 MMOL/L (3.5-5.1); SODIUM LEVEL 133 MMOL/L (136-145); TOTAL PROTEIN 6.3 G/DL (5.7-8.2)
[2022-12-27 06:34] LABS: MONO # 1.8 10^3/uL (0.0-0.8)
[2022-12-27] MEDS: INSULIN LISPRO (NovoLOG) PER UNIT SC SCH ×7 (08:40→20:05)
[2022-12-27] MEDS: SPIRONOLACTONE 25 MG TAB PO SCH (08:42)
[2022-12-27] MEDS: LEVEMIR (INSULIN DETEMIR) 1 UNITS/0.01ML SC SCH ×2 (08:42→20:27)
[2022-12-27] MEDS: VALSARTAN 80 MG TAB (DIOVAN) PO SCH (08:42)
[2022-12-27] MEDS: LACTULOSE 20GM/30ML SYRUP UDC PO SCH ×2 (08:42→20:27)
[2022-12-27] MEDS: METOPROLOL SUCC (TopROL XL) 100MG *XL* TAB PO SCH ×2 (08:43→20:28)
[2022-12-27] MEDS: COSOPT OCUMETER PLUS 10ML (DORZOLAMIDE/TIMOLOL) OU SCH ×2 (08:44→20:28)
[2022-12-27] MEDS: BRIMONIDINE 0.15% OPHTH SOLN 5 ML OU SCH ×2 (08:44→20:28)
[2022-12-27] MEDS: HEPARIN SOD (PORCINE) 5000UNITS/ML 1ML VIAL/SYRINGE SQ SCH ×2 (08:44→20:26)
[2022-12-27] MEDS ORDERED: LR 500 ML IV ONE ×2 (12:25→15:35)
[2022-12-27] MEDS: LR 1,000 ML IV SCH ×2 (12:36→19:44)
[2022-12-27 13:08] LABS: ANTINUCLEAR ANTIBODIES DIRECT Negative (Negative)
[2022-12-27] MEDS ORDERED: NS 500 ML IV ONE (15:30)
[2022-12-27 16:43] LABS: ABG BASE EXCESS 3.1 (-2.0-2.0); ABG HCO3 26.5 MEQ/L (22.0-26.0); ABG O2 SATURATION 96.9 % (95.0-99.0); ABG PARTIAL PRESSURE CO2 36.7 mmHg (35.0-45.0); ABG PARTIAL PRESSURE O2 86.5 mmHg (75.0-100.0); ABG STANDARD HCO3 27.2 MEQ/L (22.0-26.0); ABG TOTAL CO2 27.7 MEQ/L (23.0-31.0); ABG pH (ARTERIAL) 7.477 UNITS (7.350-7.450)
[2022-12-27] MEDS: PANTOPRAZOLE 40MG TAB (PROTONIX) PO SCH (20:27)
[2022-12-27] MEDS: TAMSULOSIN 0.4 MG CAP PO SCH (20:27)
[2022-12-27] MEDS: FINASTERIDE 5MG TAB PO SCH (20:27)
[2022-12-27] MEDS: LATANOPROST 0.005% OPHTH SOLN 2.5 ML OU SCH (20:28)
[2022-12-28] VITALS (11 sets, daily range): BP systolic 122–169; BP diastolic 65–86
[2022-12-28] MEDS: LR 1,000 ML IV SCH ×3 (02:05→14:00)
[2022-12-28 05:24] LABS: BASO # 0.1 10^3/uL (0.0-0.2); BASO % 0.5 % (0.0-1.0); EOS # 0.3 10^3/uL (0.0-0.5); EOS % 2.3 % (0.0-3.0); HEMATOCRIT 34.4 % (42.0-52.0); HEMOGLOBIN 11.6 g/dl (13.5-17.5); LYMPH # 1.2 10^3/uL (1.5-5.0); LYMPH % 11.1 % (24.0-44.0); MEAN CORPUSCULAR HEMOGLOBIN 32.8 pg (27.0-33.0); MEAN CORPUSCULAR HGB CONC 33.7 g/dl (32.0-36.5); MEAN CORPUSCULAR VOLUME 97.2 fl (80.0-96.0); MONO % 14.7 % (2.0-8.0); NEUTROPHILS # 7.8 10^3/uL (1.5-8.5); NEUTROPHILS % 70.8 % (36.0-66.0); PLATELET COUNT, AUTOMATED 190 10^3/uL (150-450); RED BLOOD COUNT 3.54 10^6/uL (4.30-6.10)
[2022-12-28 05:43] LABS: ALBUMIN 2.3 G/DL (3.2-5.2); ALKALINE PHOSPHATASE 55 U/L (46-116); ALT/SGPT 12 U/L (7.0-40); AST/SGOT 19 U/L (<34); BILIRUBIN,TOTAL 3.1 MG/DL (0.3-1.2); BLOOD UREA NITROGEN 19 MG/DL (9-23); CALCIUM LEVEL 8.1 MG/DL (8.3-10.6); CARBON DIOXIDE LEVEL 27 MMOL/L (20-31); CHLORIDE LEVEL 101 MMOL/L (98-107); CREATININE FOR GFR 1.32 MG/DL (0.70-1.30); GLOMERULAR FILTRATION RATE > 60.0 (>35); GLUCOSE, FASTING 218 MG/DL (74-106); POTASSIUM SERUM 3.8 MMOL/L (3.5-5.1); SODIUM LEVEL 134 MMOL/L (136-145); TOTAL PROTEIN 5.6 G/DL (5.7-8.2)
[2022-12-28 06:08] LABS: MONO # 1.6 10^3/uL (0.0-0.8)
[2022-12-28] MEDS ORDERED: ISOVUE-370 76% 100ML VIAL As Ordered ONE (07:30)
[2022-12-28] MEDS: INSULIN LISPRO (NovoLOG) PER UNIT SC SCH ×7 (07:48→21:00)
[2022-12-28] MEDS: HEPARIN SOD (PORCINE) 5000UNITS/ML 1ML VIAL/SYRINGE SQ SCH ×2 (09:43→21:55)
[2022-12-28] MEDS: LACTULOSE 20GM/30ML SYRUP UDC PO SCH ×2 (09:43→21:55)
[2022-12-28] MEDS: VALSARTAN 80 MG TAB (DIOVAN) PO SCH (09:44)
[2022-12-28] MEDS: SPIRONOLACTONE 25 MG TAB PO SCH (09:45)
[2022-12-28] MEDS: METOPROLOL SUCC (TopROL XL) 100MG *XL* TAB PO SCH ×2 (09:45→21:57)
[2022-12-28] MEDS: COSOPT OCUMETER PLUS 10ML (DORZOLAMIDE/TIMOLOL) OU SCH ×2 (09:45→21:57)
[2022-12-28] MEDS: BRIMONIDINE 0.15% OPHTH SOLN 5 ML OU SCH ×2 (09:45→21:57)
[2022-12-28] MEDS: LEVEMIR (INSULIN DETEMIR) 1 UNITS/0.01ML SC SCH ×2 (09:45→21:00)
[2022-12-28] MEDS: PANTOPRAZOLE 40MG TAB (PROTONIX) PO SCH (17:11)
[2022-12-28] MEDS ORDERED: INSULIN LISPRO (NovoLOG) PER UNIT SC ONE (18:30)
[2022-12-28] MEDS: FINASTERIDE 5MG TAB PO SCH (21:56)
[2022-12-28] MEDS: LATANOPROST 0.005% OPHTH SOLN 2.5 ML OU SCH (21:57)
[2022-12-28] MEDS: TAMSULOSIN 0.4 MG CAP PO SCH (21:57)
[2022-12-29] VITALS: BP 147/67
[2022-12-29 04:00] VITALS: BP 153/99
[2022-12-29 06:44] LABS: HEMATOCRIT 34.6 % (42.0-52.0); HEMOGLOBIN 11.5 g/dl (13.5-17.5); MEAN CORPUSCULAR HEMOGLOBIN 32.7 pg (27.0-33.0); MEAN CORPUSCULAR HGB CONC 33.2 g/dl (32.0-36.5); MEAN CORPUSCULAR VOLUME 98.3 fl (80.0-96.0); PLATELET COUNT, AUTOMATED 193 10^3/uL (150-450); RED BLOOD COUNT 3.52 10^6/uL (4.30-6.10); WHITE BLOOD COUNT 9.1 10^3/uL (4.0-10.0)
[2022-12-29 07:10] LABS: BLOOD UREA NITROGEN 16 MG/DL (9-23); CALCIUM LEVEL 8.9 MG/DL (8.3-10.6); CARBON DIOXIDE LEVEL 31 MMOL/L (20-31); CHLORIDE LEVEL 101 MMOL/L (98-107); CREATININE FOR GFR 1.32 MG/DL (0.70-1.30); GLOMERULAR FILTRATION RATE > 60.0 (>35); GLUCOSE, FASTING 247 MG/DL (74-106); SODIUM LEVEL 136 MMOL/L (136-145)
[2022-12-29 07:40] VITALS: BP 166/70
[2022-12-29] MEDS: INSULIN LISPRO (NovoLOG) PER UNIT SC SCH ×6 (08:15→21:00)
[2022-12-29] MEDS: LEVEMIR (INSULIN DETEMIR) 1 UNITS/0.01ML SC SCH ×2 (08:17→21:58)
[2022-12-29] MEDS: HEPARIN SOD (PORCINE) 5000UNITS/ML 1ML VIAL/SYRINGE SQ SCH ×2 (08:17→21:57)
[2022-12-29] MEDS: LACTULOSE 20GM/30ML SYRUP UDC PO SCH ×2 (08:17→21:57)
[2022-12-29] MEDS: SPIRONOLACTONE 25 MG TAB PO SCH (08:18)
[2022-12-29] MEDS: BRIMONIDINE 0.15% OPHTH SOLN 5 ML OU SCH ×2 (08:18→21:57)
[2022-12-29] MEDS: VALSARTAN 80 MG TAB (DIOVAN) PO SCH (08:18)
[2022-12-29] MEDS: ASPIRIN 81MG ENTERIC TABLET PO SCH (08:18)
[2022-12-29] MEDS: COSOPT OCUMETER PLUS 10ML (DORZOLAMIDE/TIMOLOL) OU SCH ×2 (08:19→21:57)
[2022-12-29 08:33] LABS: CHOLESTEROL LEVEL 145 MG/DL (<200); CHOLESTEROL RISK RATIO 5.91 (<5); HDL CHOLESTEROL 24.5 MG/DL (>40); LDL CHOLESTEROL 80.5 MG/DL (<100); NON-HDL-C 120.5 MG/DL; TRIGLYCERIDES LEVEL 200 MG/DL (<150)
[2022-12-29 09:05] VITALS: BP 168/64
[2022-12-29] MEDS: METOPROLOL SUCC (TopROL XL) 100MG *XL* TAB PO SCH ×2 (09:15→21:57)
[2022-12-29 12:00] VITALS: BP 154/42
[2022-12-29] MEDS: PANTOPRAZOLE 40MG TAB (PROTONIX) PO SCH (18:23)
[2022-12-29 19:47] VITALS: BP 156/74
[2022-12-29] MEDS: TAMSULOSIN 0.4 MG CAP PO SCH (21:56)
[2022-12-29] MEDS: ATORVASTATIN 20 MG TAB PO SCH (21:56)
[2022-12-29] MEDS: LATANOPROST 0.005% OPHTH SOLN 2.5 ML OU SCH (21:57)
[2022-12-29] MEDS: FINASTERIDE 5MG TAB PO SCH (21:57)
[2022-12-30] VITALS (9 sets, daily range): BP systolic 108–159; BP diastolic 52–86
[2022-12-30 06:47] LABS: BLOOD UREA NITROGEN 16 MG/DL (9-23); CALCIUM LEVEL 8.6 MG/DL (8.3-10.6); CARBON DIOXIDE LEVEL 27 MMOL/L (20-31); CHLORIDE LEVEL 101 MMOL/L (98-107); CREATININE FOR GFR 1.34 MG/DL (0.70-1.30); GLOMERULAR FILTRATION RATE > 60.0 (>35); GLUCOSE, FASTING 247 MG/DL (74-106); POTASSIUM SERUM 3.9 MMOL/L (3.5-5.1); SODIUM LEVEL 135 MMOL/L (136-145)
[2022-12-30] MEDS: ASPIRIN 81MG ENTERIC TABLET PO SCH (08:34)
[2022-12-30] MEDS: LEVEMIR (INSULIN DETEMIR) 1 UNITS/0.01ML SC SCH ×2 (08:35→20:56)
[2022-12-30] MEDS: INSULIN LISPRO (NovoLOG) PER UNIT SC SCH ×4 (08:35→20:44)
[2022-12-30] MEDS: LACTULOSE 20GM/30ML SYRUP UDC PO SCH ×2 (08:35→20:59)
[2022-12-30] MEDS: HEPARIN SOD (PORCINE) 5000UNITS/ML 1ML VIAL/SYRINGE SQ SCH ×2 (08:36→20:58)
[2022-12-30] MEDS: METOPROLOL SUCC (TopROL XL) 100MG *XL* TAB PO SCH (08:36)
[2022-12-30] MEDS: BRIMONIDINE 0.15% OPHTH SOLN 5 ML OU SCH ×2 (08:37→20:58)
[2022-12-30] MEDS: COSOPT OCUMETER PLUS 10ML (DORZOLAMIDE/TIMOLOL) OU SCH ×2 (08:37→20:58)
[2022-12-30] MEDS ORDERED: cloNIDine HCL 0.2 MG/24 HR PATCH TOP SCH (09:00)
[2022-12-30] MEDS: METOPROLOL SUCC (TopROL XL) 50MG **XL** TAB PO SCH (12:40)
[2022-12-30] MEDS: PANTOPRAZOLE 40MG TAB (PROTONIX) PO SCH (17:48)
[2022-12-30] MEDS: ATORVASTATIN 20 MG TAB PO SCH (20:57)
[2022-12-30] MEDS: TAMSULOSIN 0.4 MG CAP PO SCH (20:57)
[2022-12-30] MEDS: LATANOPROST 0.005% OPHTH SOLN 2.5 ML OU SCH (20:58)
[2022-12-30] MEDS: FINASTERIDE 5MG TAB PO SCH (20:58)
[2022-12-31 04:00] VITALS: BP 151/68
[2022-12-31 05:06] LABS: DOPAMINE 143 ug/24 hr (0-510); DOPAMINE TOTAL URINE 62 ug/L (Undefined); EPINEPHRINE 21 ug/24 hr (0-20); EPINEPHRINE TOTAL URINE 9 ug/L (Undefined); NOREPINEPHRINE 69 ug/24 hr (0-135); NOREPINEPHRINE TOTAL URINE 30 ug/L (Undefined)
[2022-12-31 05:55] LABS: BLOOD UREA NITROGEN 16 MG/DL (9-23); CALCIUM LEVEL 8.2 MG/DL (8.3-10.6); CARBON DIOXIDE LEVEL 28 MMOL/L (20-31); CHLORIDE LEVEL 104 MMOL/L (98-107); CREATININE FOR GFR 1.33 MG/DL (0.70-1.30); GLOMERULAR FILTRATION RATE > 60.0 (>35); GLUCOSE, FASTING 191 MG/DL (74-106); POTASSIUM SERUM 3.9 MMOL/L (3.5-5.1); SODIUM LEVEL 137 MMOL/L (136-145)
[2022-12-31 07:53] VITALS: BP 104/58
[2022-12-31] MEDS: METOPROLOL SUCC (TopROL XL) 50MG **XL** TAB PO SCH (08:17)
[2022-12-31] MEDS: ASPIRIN 81MG ENTERIC TABLET PO SCH (08:17)
[2022-12-31] MEDS: LACTULOSE 20GM/30ML SYRUP UDC PO SCH ×2 (08:18→21:33)
[2022-12-31] MEDS: HEPARIN SOD (PORCINE) 5000UNITS/ML 1ML VIAL/SYRINGE SQ SCH ×2 (08:19→21:31)
[2022-12-31] MEDS: INSULIN LISPRO (NovoLOG) PER UNIT SC SCH ×4 (08:20→21:33)
[2022-12-31] MEDS: LEVEMIR (INSULIN DETEMIR) 1 UNITS/0.01ML SC SCH ×2 (08:20→21:32)
[2022-12-31] MEDS: BRIMONIDINE 0.15% OPHTH SOLN 5 ML OU SCH ×2 (08:21→21:32)
[2022-12-31] MEDS: COSOPT OCUMETER PLUS 10ML (DORZOLAMIDE/TIMOLOL) OU SCH ×2 (08:22→21:31)
[2022-12-31 15:50] VITALS: BP 150/80
[2022-12-31] MEDS: PANTOPRAZOLE 40MG TAB (PROTONIX) PO SCH (17:07)
[2022-12-31 20:00] VITALS: BP 166/83
[2022-12-31] MEDS: LATANOPROST 0.005% OPHTH SOLN 2.5 ML OU SCH (21:32)
[2022-12-31] MEDS: ATORVASTATIN 20 MG TAB PO SCH (21:33)
[2022-12-31] MEDS: FINASTERIDE 5MG TAB PO SCH (21:33)
[2022-12-31] MEDS: TAMSULOSIN 0.4 MG CAP PO SCH (21:33)
[2023-01-01 04:00] VITALS: BP 155/70
[2023-01-01 05:22] LABS: MEAN CORPUSCULAR HEMOGLOBIN 32.7 pg (27.0-33.0); MEAN CORPUSCULAR HGB CONC 33.3 g/dl (32.0-36.5); PLATELET COUNT, AUTOMATED 213 10^3/uL (150-450); RED BLOOD COUNT 3.06 10^6/uL (4.30-6.10); WHITE BLOOD COUNT 7.2 10^3/uL (4.0-10.0)
[2023-01-01 05:42] LABS: BLOOD UREA NITROGEN 15 MG/DL (9-23); CALCIUM LEVEL 8.4 MG/DL (8.3-10.6); CARBON DIOXIDE LEVEL 27 MMOL/L (20-31); CHLORIDE LEVEL 105 MMOL/L (98-107); CREATININE FOR GFR 1.32 MG/DL (0.70-1.30); GLOMERULAR FILTRATION RATE > 60.0 (>35); GLUCOSE, FASTING 224 MG/DL (74-106); POTASSIUM SERUM 3.8 MMOL/L (3.5-5.1); SODIUM LEVEL 136 MMOL/L (136-145)
[2023-01-01 07:26] VITALS: BP 136/68
[2023-01-01] MEDS: LEVEMIR (INSULIN DETEMIR) 1 UNITS/0.01ML SC SCH ×2 (08:26→21:56)
[2023-01-01] MEDS: LACTULOSE 20GM/30ML SYRUP UDC PO SCH ×2 (08:26→21:55)
[2023-01-01] MEDS: HEPARIN SOD (PORCINE) 5000UNITS/ML 1ML VIAL/SYRINGE SQ SCH ×2 (08:27→21:57)
[2023-01-01] MEDS: INSULIN LISPRO (NovoLOG) PER UNIT SC SCH ×4 (08:27→21:00)
[2023-01-01] MEDS: ASPIRIN 81MG ENTERIC TABLET PO SCH (08:27)
[2023-01-01] MEDS: METOPROLOL SUCC (TopROL XL) 50MG **XL** TAB PO SCH (08:30)
[2023-01-01] MEDS: COSOPT OCUMETER PLUS 10ML (DORZOLAMIDE/TIMOLOL) OU SCH ×2 (08:31→21:57)
[2023-01-01] MEDS: BRIMONIDINE 0.15% OPHTH SOLN 5 ML OU SCH ×2 (08:32→21:57)
[2023-01-01 16:05] VITALS: BP 140/77
[2023-01-01] MEDS: PANTOPRAZOLE 40MG TAB (PROTONIX) PO SCH (17:51)
[2023-01-01 20:08] VITALS: BP 161/83
[2023-01-01] MEDS: TAMSULOSIN 0.4 MG CAP PO SCH (21:56)
[2023-01-01] MEDS: ATORVASTATIN 20 MG TAB PO SCH (21:56)
[2023-01-01] MEDS: FINASTERIDE 5MG TAB PO SCH (21:57)
[2023-01-01] MEDS: LATANOPROST 0.005% OPHTH SOLN 2.5 ML OU SCH (21:57)
[2023-01-02 02:45] VITALS: BP 148/75
[2023-01-02 04:12] VITALS: BP 148/75
[2023-01-02 05:49] LABS: BLOOD UREA NITROGEN 13 MG/DL (9-23); CALCIUM LEVEL 8.2 MG/DL (8.3-10.6); CARBON DIOXIDE LEVEL 25 MMOL/L (20-31); CHLORIDE LEVEL 105 MMOL/L (98-107); CREATININE FOR GFR 1.32 MG/DL (0.70-1.30); GLOMERULAR FILTRATION RATE > 60.0 (>35); GLUCOSE, FASTING 235 MG/DL (74-106); POTASSIUM SERUM 4.1 MMOL/L (3.5-5.1); SODIUM LEVEL 138 MMOL/L (136-145)
[2023-01-02 07:37] VITALS: BP 133/74
[2023-01-02] MEDS: HEPARIN SOD (PORCINE) 5000UNITS/ML 1ML VIAL/SYRINGE SQ SCH (08:59)
[2023-01-02 09:00] VITALS: BP 133/74
[2023-01-02] MEDS: ASPIRIN 81MG ENTERIC TABLET PO SCH (09:00)
[2023-01-02] MEDS: METOPROLOL SUCC (TopROL XL) 50MG **XL** TAB PO SCH (09:00)
[2023-01-02] MEDS: LEVEMIR (INSULIN DETEMIR) 1 UNITS/0.01ML SC SCH (09:00)
[2023-01-02] MEDS: LACTULOSE 20GM/30ML SYRUP UDC PO SCH (09:01)
[2023-01-02] MEDS: BRIMONIDINE 0.15% OPHTH SOLN 5 ML OU SCH (09:02)
[2023-01-02] MEDS: COSOPT OCUMETER PLUS 10ML (DORZOLAMIDE/TIMOLOL) OU SCH (09:03)
[2023-01-02] MEDS: INSULIN LISPRO (NovoLOG) PER UNIT SC SCH ×2 (09:04→12:01)
[2023-01-02] MEDS ORDERED: FINA5TAB2 PO (10:33)
[2023-01-02] MEDS ORDERED: FLOM0.4C39 PO (10:33)
[2023-01-02] MEDS ORDERED: MINO2.5T PO (10:33)
[2023-01-02] MEDS ORDERED: ASPI81TAEC PO (10:33)
[2023-01-02] MEDS ORDERED: METO1TAB7 PO (10:33)
[2023-01-02] MEDS ORDERED: ATOR1TAB21 PO (10:33)
== END 2023-01-02 13:37 | disposition home health service (06) | DRG 304 ==
LOC: M ED 13:18 → M ED INP 17:41 → ENRESERV 18:27 → M ICU 19:40 → M PCU 12-28 16:00
PROVIDERS: ADMIT Internal Medicine; ATTEND Internal Medicine Nephrology
DX: I16.1 Hypertensive emergency (principal); G93.41 Metabolic encephalopathy; N17.9 Acute kidney failure, unspecified; R17 Unspecified jaundice; E87.1 Hypo-osmolality and hyponatremia; I12.9 Hypertensive chronic kidney disease with stage 1 through stage 4 chronic kidney disease, or unspecified chronic kidney disease; E11.22 Type 2 diabetes mellitus with diabetic chronic kidney disease; N18.30 Chronic kidney disease, stage 3 unspecified; Z79.82 Long term (current) use of aspirin; Z79.899 Other long term (current) drug therapy; Z88.8 Allergy status to other drugs, medicaments and biological substances; H40.9 Unspecified glaucoma

== ENCOUNTER → 2023-02-05 | Outpatient (POV) | payer OTHER ==
[~2023-02-05] VITALS: Ht 170.2 cm; Wt 88.6 kg
[~2023-02-05] MED LIST changes: +ASPI81TAEC PO; +ATOR1TAB21 PO; +FINA5TAB2 PO; +FLOM0.4C39 PO; +METO1TAB7 PO; +MINO2.5T PO; +NETA2.5D2 OU
[2023-02-05 10:00] VITALS: BP 199/95; O2SAT 99
== END ==
LOC: M IRPOV 09:44
PROVIDERS: ATTEND Radiology Diagnostic Radiology
DX: I16.9 Hypertensive crisis, unspecified (principal); Z79.82 Long term (current) use of aspirin; Z88.8 Allergy status to other drugs, medicaments and biological substances; Z79.84 Long term (current) use of oral hypoglycemic drugs

== ENCOUNTER → 2023-02-07 | Outpatient (CLI) | payer OTHER ==
[2023-02-07 17:42] LABS: BASO % 0.5 % (0.0-1.0); EOS # 0.2 10^3/uL (0.0-0.5); HEMATOCRIT 32.6 % (42.0-52.0); HEMOGLOBIN 10.2 g/dl (13.5-17.5); LYMPH # 1.2 10^3/uL (1.5-5.0); LYMPH % 15.6 % (24.0-44.0); MEAN CORPUSCULAR HEMOGLOBIN 31.8 pg (27.0-33.0); MEAN CORPUSCULAR HGB CONC 31.3 g/dl (32.0-36.5); MEAN CORPUSCULAR VOLUME 101.6 fl (80.0-96.0); MONO # 0.8 10^3/uL (0.0-0.8); MONO % 10.4 % (2.0-8.0); NEUTROPHILS # 5.4 10^3/uL (1.5-8.5); NEUTROPHILS % 71.4 % (36.0-66.0); PLATELET COUNT, AUTOMATED 190 10^3/uL (150-450); RED BLOOD COUNT 3.21 10^6/uL (4.30-6.10); WHITE BLOOD COUNT 7.5 10^3/uL (4.0-10.0)
[2023-02-07 18:01] LABS: ALBUMIN 3.6 G/DL (3.2-5.2); ALKALINE PHOSPHATASE 49 U/L (46-116); ALT/SGPT 17 U/L (7.0-40); AST/SGOT 25 U/L (<34); BILIRUBIN,TOTAL 1.6 MG/DL (0.3-1.2); BLOOD UREA NITROGEN 13 MG/DL (9-23); CALCIUM LEVEL 8.6 MG/DL (8.3-10.6); CARBON DIOXIDE LEVEL 26 MMOL/L (20-31); CHLORIDE LEVEL 105 MMOL/L (98-107); CREATININE FOR GFR 1.36 MG/DL (0.70-1.30); GLOMERULAR FILTRATION RATE > 60.0 (>35); GLUCOSE, FASTING 213 MG/DL (74-106); POTASSIUM SERUM 4.5 MMOL/L (3.5-5.1); SODIUM LEVEL 138 MMOL/L (136-145); TOTAL PROTEIN 6.9 G/DL (5.7-8.2)
== END ==
LOC: M WUC 12:14
PROVIDERS: ATTEND Nurse Practitioner Family
DX: R06.00 Dyspnea, unspecified (principal); M79.89 Other specified soft tissue disorders

== ENCOUNTER → 2023-03-26 | Outpatient (REF) | payer OTHER ==
[2023-03-26 18:20] LABS: CREATININE, URINE 81.7 MG/DL; MAU/CREAT RATIO 59.9 MCG/MG (0.0-30.0)
[2023-03-26 18:40] LABS: APPEARANCE, URINE CLEAR (CLEAR); BACTERIA, URINE AUTO NEGATIVE (NEGATIVE); BILIRUBIN, URINE AUTO NEGATIVE (NEGATIVE); BLOOD, URINE BLOOD NEGATIVE (NEGATIVE); COLOR, URINE YELLOW (YELLOW); GLUCOSE, URINE (UA) AUTO 3+ mg/dL (NEGATIVE); KETONE, URINE AUTO NEGATIVE (NEGATIVE); LEUKOCYTE ESTERASE, URINE AUTO NEGATIVE (NEGATIVE); NITRITE, URINE AUTO NEGATIVE (NEGATIVE); PROTEIN, URINE AUTO NEGATIVE (NEGATIVE); RBC, URINE AUTO 1 /HPF (0-3); SPECIFIC GRAVITY URINE AUTO 1.022 (1.002-1.035); SQUAMOUS EPITHELIAL CELL UR AU 0 /HPF (0-6); UROBILINOGEN, URINE AUTO 0.2 mg/dL (0.0-2.0); WBC, URINE AUTO 1 /HPF (0-3)
== END ==
LOC: M LAB REF 16:16
PROVIDERS: ATTEND Nurse Practitioner Family
DX: R31.9 Hematuria, unspecified (principal); E11.9 Type 2 diabetes mellitus without complications